=== PATIENT | female | born 1995 | race Caucasian/White ===

== ENCOUNTER 2021-07-08 00:42 | Emergency (ER) | payer OTHER ==
[~2021-07-08] VITALS: Ht 160 cm; Wt 75.0 kg
[2021-07-08] MEDS ORDERED: SODIUM CHLORIDE 0.9% 1,000 ML IV ONE (03:15)
[2021-07-08 04:35] LABS: BASOPHILS % 0.7 % (0.0-2.0); EOSINOPHILS % 0.4 % (0.0-5.0); HEMATOCRIT. 42.4 % (36.0-48.0); HEMOGLOBIN. 14.6 g/dL (12.0-16.0); LYMPHOCYTES % 17.4 % (20.0-50.0); MEAN CORPUSCULAR HEMOGLOBIN 29.5 pg (28.0-32.0); MEAN CORPUSCULAR VOLUME 85.7 fL (81.0-99.0); MEAN PLATELET VOLUME 10.3 fl (7.4-10.4); MONOCYTES % 4.4 % (2.0-8.0); NEUTROPHILS % 77.1 % (40.0-76.0); PLATELET 246 x1000/uL (130-400); RED BLOOD CELL COUNT 4.95 mill/uL (4.2-5.4); RED CELL DISTRIBUTION WIDTH 13.3 % (11.6-14.6)
[2021-07-08 04:37] LABS: CLARITY URINE CLOUDY (CLEAR); COLOR URINE DARK YELLOW (YELLOW); KETONES URINE 3+ (NEGATIVE); LEUKOCYTE ESTERASE URINE 1+ (NEGATIVE); NITRITE URINE NEGATIVE (NEGATIVE); OCCULT BLOOD URINE 3+ (NEGATIVE); PH URINE 5.5 (4.5-8.0); PROTEIN URINE 1+ (NEGATIVE); SPECIFIC GRAVITY URINE 1.029 (1.005-1.030)
[2021-07-08 04:41] LABS: CHLORIDE 103 mEq/L (98-107)
[2021-07-08 04:45] LABS: ETHANOL BLOOD < 10 mg/dL
[2021-07-08 04:48] LABS: HCG SCREEN NEGATIVE
[2021-07-08 04:52] LABS: *AMPHETAMINES SCREEN URINE NEGATIVE (NEGATIVE); *BARBITURATES SCREEN URINE NEGATIVE (NEGATIVE); *BENZODIAZEPINES SCREEN URINE NEGATIVE (NEGATIVE)
[2021-07-08 04:53] LABS: *COCAINE SCREEN URINE NEGATIVE (NEGATIVE); CANNABINOID URINE SCREEN NEGATIVE (NEGATIVE); METHADONE URINE SCREEN NEGATIVE (NEGATIVE); OPIATES URINE SCREEN NEGATIVE (NEGATIVE); PHENCYCLIDINE URINE SCREEN NEGATIVE (NEGATIVE)
[2021-07-08] MEDS ORDERED: NITR-87 MT (06:27)
[2021-07-08 06:32] VITALS: BP 121/79
== END 2021-07-08 06:34 | disposition home or self-care (01) ==
LOC: ER 00:42
DX: R55 Syncope and collapse (principal); N39.0 Urinary tract infection, site not specified; R11.0 Nausea
CPT/HCPCS: 36415; 76830; 76856; 80053; 80305; 80320; 81003; 81025; 84703; 85025; 86850; 86900; 86901; 96360; 99284; J7030; G0480